=== PATIENT | male | born 1935 | race Caucasian/White ===

== ENCOUNTER 2022-04-10 09:53 | Emergency (ER) | payer OTHER, MEDICARE, BC ==
[2022-04-10] MEDS ORDERED: Lactated Ringers 1,000 ML IV ONE (10:01)
[2022-04-10] MEDS ORDERED: cefTRIAXone 1 GM in Sodium Chloride 0.9% 100 ML IV ONE (10:06)
[2022-04-10] MEDS ORDERED: Sodium Chloride 0.9% 1,000 ML IV ONE (10:07)
[2022-04-10] MEDS ORDERED: cefTRIAXone 2 GM in Sodium Chloride 0.9% 100 ML IV ONE (10:15)
[2022-04-10] MEDS ORDERED: methylPREDNISolone Sodium Succinate 40 MG/1 ML SDV IVPUSH ONE (10:17)
[2022-04-10 10:31] LABS: ANION GAP 14.8 meq/L (7-15); CHLORIDE,CL 111 mmol/L (98-107); ESTIMATED GFR 45 mL/min (>=60); SODIUM,NA 144 mmol/L (136-145)
[2022-04-10 11:12] LABS: CORONAVIRUS COVID-19 NAA NEGATIVE (NEGATIVE); RESPIRATORY SYNCYTIAL VIR NAA NEGATIVE (NEGATIVE)
[2022-04-10] MEDS ORDERED: Lactated Ringers 1,000 ML IV SCH (11:15)
[2022-04-10] MEDS ORDERED: Magnesium Sulfate/Water 2 GM in Premix Bag 1 BAG IV ONE (12:01)
[2022-04-10] MEDS ORDERED: Acetaminophen 325 MG Tab ONE (12:22)
== END 2022-04-10 12:30 ==
LOC: LL.ED 09:53
DX: A41.9 Sepsis, unspecified organism (principal); J18.9 Pneumonia, unspecified organism; I95.9 Hypotension, unspecified; Z79.899 Other long term (current) drug therapy; Z79.01 Long term (current) use of anticoagulants; Z20.822 Contact with and (suspected) exposure to COVID-19
CPT/HCPCS: 0241U; 36415; 51702; 71045; 80053; 81001; 83605; 83735; 83880; 84484; 85025; 85379; 87040; 96365; 96367; 96375; 99285; A9270; J0696; J2920; J3370; J3475; J3490; J7030; J7050; J7120